=== PATIENT | male | born 1960 | race African-American/Black ===

== ENCOUNTER 2022-06-11 22:20 | Observation (INO) ==
[2022-06-11] MEDS ORDERED: SODIUM CHLORIDE 0.9% 1000ML 1,000 ML IV SCH (23:15)
--- NOTE | 2022-06-11 23:21 | Emergency Department Note ---
History of Present Illness General Chief complaint: Cardiac Assessment Time Seen by Provider: 06/11/22 22:40 Source: patient Mode of arrival: EMS Limitations: no limitations History of Present Illness Provider complaint: Fatigue, dizziness, chest pain Maximum Pain Intensity: 7 This is a 61-year-old male who presents emergency department complaining of 1 month of intermittent fatigue, dizziness, chest pain, shortness of breath. Patient states [facility]. He does not know the results. He denies any prior history of heart attack, congestive heart failure or dysrhythmia. Patient states he does not take any medication for blood pressure. He denies any other recent change in medications. Denies any recent illness or change in activity. Patient states today he felt worse and had accompanying nausea and vomiting. He states he had already felt fatigued and dizzy at that time. He states shortness of breath has been ongoing for longer than the last month. He is a former smoker. He states that shortness of breath is worse with activity. Home Medications Medication Instructions Recorded Confirmed Type albuterol sulfate 90 mcg/actuation 2 puff inhalation QID PRN 06/12/22 06/12/22 History aerosol inhaler Shortness Of Breath atorvastatin 20 mg tablet 20 mg PO HS 06/12/22 06/12/22 History ciclesonide 160 mcg/actuation 1 puff inhalation BID 06/12/22 06/12/22 History aerosol inhaler (Alvesco) meclizine 12.5 mg tablet 12.5 mg PO BID PRN #0 tabs 06/12/22 Rx omeprazole 20 mg tablet,delayed 20 mg PO DAILY 06/12/22 06/12/22 History release tamsulosin 0.4 mg capsule 0.4 mg PO HS #0 caps 06/12/22 Rx Allergies Allergy/AdvReac Type Severity Reaction Status Date / Time aspirin Allergy Unknown Unknown Verified 06/12/22 00:07 feathers Allergy Unknown Unknown Verified 06/12/22 00:07 wool Allergy Unknown Unknown Verified 06/12/22 00:07 Past Med/Surg History Medical History Hyperlipidemia Hypertension Family History Other Cerebral aneurysm Hypertension Social History Smoking Status: Never smoker Second Hand Exposure: No; Hx Alcohol Use: No Preferred Language: Syriac Communication Ability: Effective 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 Beliefs That Will Affect Care: None Current Living Situation: Other Current Living Situation Comment: [facility] Elder Feels Safe at Home: Yes and Declines to Answer Assistive Devices: None Review of Systems A total of 10 systems reviewed and were otherwise negative All systems reviewed & are unremarkable except as noted in HPI & below Physical Exam Vital Signs Vital Signs - 24 hr 06/11/22 22:38 06/11/22 22:38 06/11/22 23:27 Temperature 36.3 C L Temperature Source Oral Pulse Rate 38 L Pulse Rate [Right Finger] 41 L Respiratory Rate 14 16 Respiratory Effort / Characteristics Non-Labored Respiratory Depth Normal Blood Pressure 181/75 H Blood Pressure [Right Arm] 152/69 H Blood Pressure Mean 110 Blood Pressure Mean [Right Arm] 96 Pulse Oximetry 97 97 97 Oxygen Delivery Method Room Air Room Air Room Air Sepsis Recent Fever Within 48 Hours No Sepsis New/Unexplained Change in Mental Status N/A Sepsis Action Taken by Nursing No Action Required 06/12/22 00:43 Temperature Temperature Source Pulse Rate Pulse Rate [Right Finger] 46 L Respiratory Rate 16 Respiratory Effort / Characteristics Respiratory Depth Blood Pressure Blood Pressure [Right Arm] 135/62 Blood Pressure Mean Blood Pressure Mean [Right Arm] 86 Pulse Oximetry 97 Oxygen Delivery Method Room Air Sepsis Recent Fever Within 48 Hours Sepsis New/Unexplained Change in Mental Status Sepsis Action Taken by Nursing GENERAL: alert, ill appearing, well nourished, no distress, non-toxic EYE EXAM: normal conjunctiva, PERRL and EOM's grossly intact, no nystagmus OROPHARYNX: no exudate, no erythema, lips, buccal mucosa, and tongue normal and mucous membranes are moist NECK: supple, no nuchal rigidity, no adenopathy, non-tender LUNGS: Clear to auscultation. Normal chest wall mechanics, no w/r/r HEART: no murmurs, S1 normal and S2 normal, patient noted to be bradycardic on tele at 39 ABDOMEN: abdomen soft, non-tender, normo-active bowel sounds, no masses, no rebound or guarding. BACK: Back is symmetrical on inspection and there is no deformity, no midline tenderness, no CVA tenderness. SKIN: no rashes and no bruising UPPER EXTREMITIES: upper extremities are grossly normal. FROM, nml pulses b/l. LOWER EXTREMITIES: No pitting edema. FROM, nml pulses b/l. NEURO EXAM: Normal sensorium, cranial nerves II-XII grossly intact, normal speech, no gross weakness of arms, no gross weakness of legs. Gross sensation intact. Course Course 0055: After contacting the [facility] about results of his recent testing, and EKG only was faxed over, no echo. Administered Medications Discontinued Medications Fluticasone Furoate (Fluticasone Furoate 200mcg 14 Puffs/Inhaler) 1 puffs INH DAILY MATT Stop: 07/12/22 08:59 Last Admin: 06/12/22 10:34 Dose: 1 puffs Documented By: ESTER Sodium Chloride (Nss 1000ml) 1,000 mls @ 125 mls/hr IV .Q8H MATT Stop: 07/11/22 23:14 Last Infusion: 06/12/22 02:24 Dose: 0 mls/hr Documented By: Admin: 06/11/22 23:19 Dose: 125 mls/hr Documented By: SAEED Sodium Chloride (Nss 1000ml) 1,000 mls @ 80 mls/hr IV .[id number] MATT Stop: 06/12/22 14:46 Last Infusion: 06/12/22 15:40 Dose: 0 mls/hr Documented By: Admin: 06/12/22 03:16 Dose: 80 mls/hr Documented By: YVON Magnesium Oxide (Magnesium Oxide 400 Mg Tab) 400 mg PO QAM MATT Stop: 07/12/22 08:59 Last Admin: 06/12/22 10:34 Dose: 400 mg Documented By: ESTER Pantoprazole Sodium (Pantoprazole 40 Mg Tab) 40 mg PO DAILY MATT Stop: 07/12/22 08:59 Last Admin: 06/12/22 10:34 Dose: 40 mg Documented By: ESTER Medical Decision Making Differential Diagnosis Differential diagnoses includes but is not limited to acute coronary syndrome, myocardial infarction, pericarditis, pulmonary embolus, aortic dissection, pneumonia, pneumothorax, musculoskeletal, shingles, esophageal. Medical Records Attestation: I reviewed the patient's medical records. Home Medications Current Medication List: was personally reviewed by me Laboratory Data Attestation: I reviewed the patient's lab results. Result diagrams: 06/12/22 05:46 06/12/22 05:46 Lab Results 06/11/22 06/11/22 06/11/22 Range/Units 22:48 22:48 22:48 WBC 6.31 (4.8-10.8) K/ul RBC 3.99 L (4.63-6.08) M/uL Hgb 13.9 L (14.0-18.0) g/dl Hct 39.5 L (40.1-51.0) % MCV 99.0 (80.0-100.0) fL MCH 34.8 H (25.0-34.0) pg MCHC 35.2 (32.0-36.0) g/dL RDW Std Deviation 49.9 H (36.4-46.3) fL RDW Coeff of Rosalio 13.6 (11.5-14.5) % Plt Count 170 (130-400) K/uL MPV 13.2 H (9.4-12.4) fL Neutrophils % (Manual) 29 % Lymphocytes % (Manual) 51 % Reactive Lymphs % (Man) 12 % Monocytes % (Manual) 5 % Eosinophils % (Manual) 2 % Basophils % (Manual) 1 % Neutrophils # (Manual) 1.83 (1.4-6.5) K/uL Total Absolute Neuts 1.83 (1.4-6.5) K/uL Lymphocytes # (Manual) 3.22 (1.2-3.4) K/uL Reactive Lymphs # 0.76 K/uL Total Abs Lymphocytes 3.98 H (1.2-3.4) K/uL Monocytes # (Manual) 0.32 (0.24-0.82) K/uL Eosinophils # (Manual) 0.13 (0-0.50) K/uL Basophils # (Manual) 0.06 (0-0.2) K/uL PT 11.4 (9.0-12.0) Seconds INR 1.1 (0.9-1.1) Sodium 137 (136-145) mmol/L Potassium 3.6 (3.5-5.1) mmol/L Chloride 106 (98-107) mmol/L Carbon Dioxide 24 (21-32) mmol/L Anion Gap 7 (3-11) BUN 14 (6-23) mg/dl Creatinine 1.16 (0.6-1.4) mg/dl Est Cr Clr Drug Dosing Not Reportable Est GFR ( Amer) 78.3 ml/min Est GFR (Non-Af Amer) 67.6 ml/min BUN/Creatinine Ratio 12.1 (10-20) Glucose 115 H (70-99(Fasting)) mg/dl Calcium 9.0 (8.5-10.1) mg/dl Magnesium 1.8 (1.7-2.4) mg/dl Total Bilirubin 0.5 (0.2-1.0) mg/dl AST 21 (13-39) U/L ALT 20 (7-52) U/L Alkaline Phosphatase 94 (34-104) U/L Troponin I High Sens 4.6 (0-20) pg/ml Total Protein 6.9 (6.0-8.3) gm/dl Albumin 4.5 (3.4-5.0) gm/dl Globulin 2.4 L (2.5-4.0) gm/dl Albumin/Globulin Ratio 1.9 (0.9-2) TSH (0.300-4.500) uIu/ml Lyme Disease IgG Ab (Negative) Lyme Disease IgM Ab (Negative) SARS-CoV-2, RNA, NAAT (NEGATIVE) 06/11/22 06/11/22 06/12/22 Range/Units 22:48 22:48 00:02 WBC (4.8-10.8) K/ul RBC (4.63-6.08) M/uL Hgb (14.0-18.0) g/dl Hct (40.1-51.0) % MCV (80.0-100.0) fL MCH (25.0-34.0) pg MCHC (32.0-36.0) g/dL RDW Std Deviation (36.4-46.3) fL RDW Coeff of Rosalio (11.5-14.5) % Plt Count (130-400) K/uL MPV (9.4-12.4) fL Neutrophils % (Manual) % Lymphocytes % (Manual) % Reactive Lymphs % (Man) % Monocytes % (Manual) % Eosinophils % (Manual) % Basophils % (Manual) % Neutrophils # (Manual) (1.4-6.5) K/uL Total Absolute Neuts (1.4-6.5) K/uL Lymphocytes # (Manual) (1.2-3.4) K/uL Reactive Lymphs # K/uL Total Abs Lymphocytes (1.2-3.4) K/uL Monocytes # (Manual) (0.24-0.82) K/uL Eosinophils # (Manual) (0-0.50) K/uL Basophils # (Manual) (0-0.2) K/uL PT (9.0-12.0) Seconds INR (0.9-1.1) Sodium (136-145) mmol/L Potassium (3.5-5.1) mmol/L Chloride (98-107) mmol/L Carbon Dioxide (21-32) mmol/L Anion Gap (3-11) BUN (6-23) mg/dl Creatinine (0.6-1.4) mg/dl Est Cr Clr Drug Dosing Est GFR ( Amer) ml/min Est GFR (Non-Af Amer) ml/min BUN/Creatinine Ratio (10-20) Glucose (70-99(Fasting)) mg/dl Calcium (8.5-10.1) mg/dl Magnesium (1.7-2.4) mg/dl Total Bilirubin (0.2-1.0) mg/dl AST (13-39) U/L ALT (7-52) U/L Alkaline Phosphatase (34-104) U/L Troponin I High Sens (0-20) pg/ml Total Protein (6.0-8.3) gm/dl Albumin (3.4-5.0) gm/dl Globulin (2.5-4.0) gm/dl Albumin/Globulin Ratio (0.9-2) TSH 0.838 (0.300-4.500) uIu/ml Lyme Disease IgG Ab Negative (Negative) Lyme Disease IgM Ab Negative (Negative) SARS-CoV-2, RNA, NAAT NEGATIVE (NEGATIVE) Imaging Data Radiologist's Impression: XR chest 1V portable HISTORY: 61 years-old Male chest pain . Acute chest pain COMPARISON: Chest radiograph 01/31/2020 TECHNIQUE: Portable AP view of the chest FINDINGS: The cardiomediastinal and hilar silhouettes are unchanged. No pneumothorax, pleural effusion, airspace consolidation or overt pulmonary edema. Bones of the chest appear grossly intact. IMPRESSION: No acute process. ACT 112: Negative or not required by law. The above report was generated using voice recognition software. It may contain grammatical, syntax or spelling errors. Electronically signed by: Mac Alvarez M.D. 06/12/2022 9:13 AM ECG Data Attestation: I personally reviewed and interpreted this ECG as follows: Indication: + chest pain Rate (beats per minute): 42 Rhythm: + sinus bradycardia ECG Intervals/blocks: + Normal QRS and + Normal QT ECG [place]: + Normal ECG ST segments: + Nonspecific ST abnormalities MDM Narrative An order was placed for continuous cardiac monitoring. The monitor shows a rate of _38__ with _sinus bradycardia__ rhythm. This is a 61-year-old male presents emergency department complaining of intermittent chest pain, dizziness, fatigue, and nausea. Patient noted to be significantly bradycardic in the upper 30s initially by nurses and so he was placed in a room and connected to telemetry. Patient's EKG otherwise reass uring, no evidence of heart block. Patient denies any recent trauma or illness. Denies any use of medication for blood pressure which could have also concurrently caused a lower heart rate. Patient is not anticoagulated. Chest x-ray reassuring. Labs been drawn and sent were otherwise reassuring also, additional labs added for Lyme and COVID. Patient with persistent significant bradycardia while monitored in the emergency room. He was rechecked multiple times. Patient had improvement of dizziness and nausea with medication and fluids, however remained bradycardic. Due to concern for possible bradycardia being the origin of all of his symptoms and patient with multiple risk factors for coronary artery disease, case discussed with the hospitalist for additional evaluation and management. Impression & Plan Chest pain, Symptomatic bradycardia, Dizziness, Fatigue Discharge Plan Visit Data Chief Complaint: Cardiac Assessment ED Provider: Hannah Mcintyre Discharge Problem: Chest pain, Symptomatic bradycardia, Dizziness, Fatigue Patient Disposition: Admitted As Inpatient Discharge Instructions Interventions: ED Discharge Assessment Last Done: 06/12/22 02:01
[2022-06-11 23:37] LABS: Hematocrit (blood only) 39.5 % (40.1-51.0); Hemoglobin 13.9 g/dl (14.0-18.0); Mean Corpuscular Hemoglobin 34.8 pg (25.0-34.0); Mean Corpuscular Hgb Conc 35.2 g/dL (32.0-36.0); RDW Coefficient of Variation 13.6 % (11.5-14.5); RDW Standard Deviation 49.9 fL (36.4-46.3); Red Blood Count 3.99 M/uL (4.63-6.08); White Blood Count 6.31 K/ul (4.8-10.8)
[2022-06-11 23:50] LABS: INR 1.1 (0.9-1.1); Prothrombin Time 11.4 Seconds (9.0-12.0)
[2022-06-12 00:02] LABS: Mean Platelet Volume 13.2 fL (9.4-12.4); Platelet Count 170 K/uL (130-400); Troponin I High Sensitivity 4.6 pg/ml (0-20)
[2022-06-12 00:04] LABS: ALC (manual) 3.98 K/uL (1.2-3.4); ANC (manual) 1.83 K/uL (1.4-6.5); Basophils # (manual) 0.06 K/uL (0-0.2); Basophils % (manual) 1 %; Eosinophils # (manual) 0.13 K/uL (0-0.50); Eosinophils % (manual) 2 %; Lymphocytes # (manual) 3.22 K/uL (1.2-3.4); Lymphocytes % (manual) 51 %; Monocytes # (manual) 0.32 K/uL (0.24-0.82); Monocytes % (manual) 5 %; Neutrophils # (manual) 1.83 K/uL (1.4-6.5); Neutrophils % (manual) 29 %; Reactive Lymphocytes # (manual) 0.76 K/uL; Reactive Lymphocytes % (manual) 12 %
[2022-06-12 00:05] LABS: Alanine Aminotransferase 20 U/L (7-52); Albumin Globulin Ratio 1.9 (0.9-2); Albumin Level 4.5 gm/dl (3.4-5.0); Alkaline Phosphatase 94 U/L (34-104); Anion Gap 7 (3-11); Aspartate Aminotransferase 21 U/L (13-39); BUN Creatinine Ratio 12.1 (10-20); Bilirubin,Total 0.5 mg/dl (0.2-1.0); Blood Urea Nitrogen 14 mg/dl (6-23); Carbon Dioxide 24 mmol/L (21-32); Chloride 106 mmol/L (98-107); Est GFR (African American) 78.3 ml/min; Est GFR (Non-African American) 67.6 ml/min; Globulin 2.4 gm/dl (2.5-4.0); Glucose 115 mg/dl (70-99(Fasting)); Magnesium 1.8 mg/dl (1.7-2.4); Potassium 3.6 mmol/L (3.5-5.1); Sodium 137 mmol/L (136-145); Total Protein 6.9 gm/dl (6.0-8.3)
[2022-06-12 00:14] LABS: Lyme Ab IgG w/WB Rflx Negative (Negative); Lyme Ab IgM w/WB Rflx Negative (Negative)
[2022-06-12] MEDS ORDERED: SODIUM CHLORIDE 0.9% 1000ML 1,000 ML IV SCH (02:17)
[2022-06-12] MEDS ORDERED: ACETAMINOPHEN 325 MG TAB PO PRN (02:17)
[2022-06-12] MEDS ORDERED: NITROGLYCERIN SL 0.4 MG/TAB TAB SL PRN (02:17)
[2022-06-12] MEDS ORDERED: ONDANSETRON INJ 2 MG/ML 2 ML VIAL IV PRN (02:17)
[2022-06-12] MEDS ORDERED: ALBUTEROL HFA 8 GM INHALER INH PRN (02:17)
[2022-06-12] MEDS ORDERED: POLYETHYLENE (MIRALAX) 17 GM PACK PO PRN (02:17)
--- NOTE | 2022-06-12 02:37 | History and Physical Report ---
DATE OF SERVICE: 06/12/2022. CHIEF COMPLAINT: Chest pain and dizziness. HISTORY OF PRESENT ILLNESS: This is a 61-year-old male with past medical history significant for asthma, hyperlipidemia, GERD and BPH, who presents with ongoing on and off chest pain for the last 2 months and also feeling dizzy on and off for the last 2 months and blurred visions. Today, it was a little worse and he also had nausea and vomiting episodes today, that is the reason he came here. No aggravating or alleviating factors. It comes on its own and goes on its own. It is in the lower chest, mainly reported sharp pain, 5/10 in severity, no radiation. The patient also gets frequent headaches. No earache, no runny nose, no sore throat, no cough, no difficulty swallowing food and for solids and liquids, but sometimes has difficulty swallowing saliva. He is getting short of breath on exertion. No abdominal pain. Normal bowel and bladder movements. Not able to ambulate much because of dizziness lately. In the ER, his heart rate was in the 30s and 40s, blood pressure is okay. ALLERGIES: ASPIRIN, FEATHERS, MOLD. PAST MEDICAL HISTORY: As mentioned above. 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 MEDICATIONS: The patient is on albuterol 2 puffs inhalation q.i.d. p.r.n., atorvastatin 20 mg p.o. at bedtime, Alvesco 1 puff inhalation b.i.d., omeprazole 20 mg p.o. daily, terazosin 10 mg p.o. at bedtime. FAMILY HISTORY: Significant for father has heart disease, mother from cancer and COVID. SOCIAL HISTORY: He states he has remote history of smoking a long time back. He used to drink a long time back. Currently living in half-way. REVIEW OF SYSTEMS: As per HPI. Rest of review of systems is negative. PHYSICAL EXAMINATION: GENERAL: The patient is of moderate build, not in acute distress. VITAL SIGNS: Temperature 36.3, pulse 46, respiratory rate 16, blood pressure 135/62, oxygen 97% on room air. HEENT: Pupils equal, round and reactive to light. Oral mucosa moist. NECK: No JVD or neck masses. CARDIOVASCULAR: S1 and S2 heard. Bradycardia. No murmurs. RESPIRATORY SYSTEM: Normal AP diameter. No accessory muscle use. No wheezing, no crackles. ABDOMEN: Soft, bowel sounds present, nontender, no distention. CENTRAL NERVOUS SYSTEM: Cranial nerves II through XII grossly intact, nonfocal. EXTREMITIES: No edema, no erythema. LABORATORY DATA: WBC 6.3, hemoglobin 13.9, hematocrit 39.5, platelets 170. PT is 11.4, INR 1.1. Sodium 137, potassium 3.6, chloride 106, bicarbonate 24, BUN 14, creatinine 1.1, serum glucose 115, calcium 9, magnesium 1.8, total bilirubin 0.5, AST 21, ALT 20, alkaline phosphatase 94. Troponin I high sensitivity 4.6. TSH 0.8. Lyme screen negative. SARS-CoV-2 rapid test negative. IMAGING DATA: Chest x-ray, no acute findings. EKG: Marked sinus bradycardia at a rate of 42, no acute ST changes seen. ASSESSMENT AND PLAN: This is a 61-year-old male who presents with on and off chest pain and on and off dizziness and blurred vision. 1. Chest pain: Troponin negative. We will follow serial enzymes.Will follow echo. Stress test as per cardiology. We will keep him n.p.o.Monitor in tele. 2. Dizziness, bradycardia: Tele monitoring We will await cardiac input. Lyme screen negative. 3. History of asthma: Continue his home inhalers. 4. History of hyperlipidemia: Continue statin. 5. History of gastroesophageal reflux disease: Continue omeprazole. 6. History of benign prostatic hyperplasia: Continue terazosin. 7. Deep venous thrombosis prophylaxis: Sequential compression devices for now. DISPOSITION: Admit to tele floor. Level 1 full code. Expect to discharge back to half-way when stable. Job ID: [id number] [facility]
[2022-06-12 06:09] LABS: Hematocrit (blood only) 39.3 % (40.1-51.0); Hemoglobin 13.9 g/dl (14.0-18.0); Mean Corpuscular Hemoglobin 34.4 pg (25.0-34.0); Mean Corpuscular Hgb Conc 35.4 g/dL (32.0-36.0); Mean Corpuscular Volume 97.3 fL (80.0-100.0); RDW Coefficient of Variation 13.6 % (11.5-14.5); RDW Standard Deviation 48.6 fL (36.4-46.3); Red Blood Count 4.04 M/uL (4.63-6.08); White Blood Count 7.83 K/ul (4.8-10.8)
[2022-06-12 06:12] LABS: Basophils # (auto) 0.04 K/uL (0-0.2); Basophils % (auto) 0.5 %; Eosinophils # (auto) 0.11 K/uL (0-0.50); Eosinophils % (auto) 1.4 %; Immature Granulocytes # (auto) 0.01 K/uL (0.00-0.02); Immature Granulocytes % (auto) 0.1 %; Lymphocytes # (auto) 3.36 K/uL (1.2-3.4); Lymphocytes % (auto) 42.9 %; Mean Platelet Volume 13.1 fL (9.4-12.4); Monocytes # (auto) 0.58 K/uL (0.24-0.82); Monocytes % (auto) 7.4 %; Neutrophils # (auto) 3.73 K/uL (1.4-6.5); Neutrophils % (auto) 47.7 %; Platelet Count 171 K/uL (130-400)
[2022-06-12 06:40] LABS: Troponin I High Sensitivity 3.7 pg/ml (0-20)
[2022-06-12 06:49] LABS: BUN Creatinine Ratio 11.1 (10-20); Calcium 8.7 mg/dl (8.5-10.1); Creatinine Clr Calc Pharmacy 71.5 ml/min; Est GFR (African American) 77.5 ml/min; Est GFR (Non-African American) 66.9 ml/min; Magnesium 1.7 mg/dl (1.7-2.4); Potassium 4.9 mmol/L (3.5-5.1)
--- NOTE | 2022-06-12 08:34 | Cardiology Consultation ---
Date of Consultation June 12, 2022 Assessment & Plan (1) Chest pain: (2) Dizziness: (3) Fatigue: (4) Hyperlipidemia: (5) Hypertension: (6) Sinus bradycardia: Plan Initial ischemic work-up unremarkable Exercise stress echo was nonischemic with appropriate chronotropic competence. Upon further questioning, dizziness appears to be likely secondary to vertigo. Will ask our physical therapy colleagues to evaluate and treat Okay to discharge once seen by physical therapy from a cardiac standpoint History of Present Illness Reason for Consultation: chest pain/bradycardia Requesting Physician: BOGDAN Attending Physician: Ney Toney MD History of Present Illness The patient is a 61 yo male currently incarcerated at [facility] who presents with chest discomfort and dizziness. He states that his symptoms started approximately 2 months ago. He states he has been having chest discomfort and dizzy spells off and on for the last 2 months. He notes the chest discomfort does not seem to have any pattern to it and can happen either at rest or with exertion. He describes it as a dull achy substernal pressure sensation without associated symptoms. His dizziness is positional in nature and occurs with head movements. When he does get dizzy he also gets very nauseous with occasional vomiting. No previous cardiac history. No previous similar episodes in the past. Allergies Allergy/AdvReac Type Severity Reaction Status Date / Time aspirin Allergy Unknown Unknown Verified 06/12/22 00:07 feathers Allergy Unknown Unknown Verified 06/12/22 00:07 wool Allergy Unknown Unknown Verified 06/12/22 00:07 Home Medications Medication Instructions Recorded Confirmed Type albuterol sulfate 90 mcg/actuation 2 puff inhalation QID PRN 06/12/22 06/12/22 History aerosol inhaler Shortness Of Breath atorvastatin 20 mg tablet 20 mg PO HS 06/12/22 06/12/22 History ciclesonide 160 mcg/actuation 1 puff inhalation BID 06/12/22 06/12/22 History aerosol inhaler (Alvesco) omeprazole 20 mg tablet,delayed 20 mg PO DAILY 06/12/22 06/12/22 History release terazosin 10 mg capsule 10 mg PO HS 06/12/22 06/12/22 History Patient History Medical History Hyperlipidemia Hypertension Family History Other Cerebral aneurysm Hypertension Social History Smoking Status: Never smoker Second Hand Exposure: No; Do You Dip or Chew Tobacco: No; Tobacco Cessation Education Requested by Patient: No Hx Alcohol Use: No Preferred Language: Armenian Communication Ability: Effective Supervisor Costuming Required: No Beliefs That Will Affect Care: None Current Living Situation: Other Current Living Situation Comment: [facility] Other Information That Helps Us Care for You: No Feels Safe at Home: Yes and Declines to Answer Safety Concerns: Feels Safe At This Time Assistive Devices: None Review of Systems Review of Systems: All systems reviewed & are unremarkable except as noted in HPI & below Physical Exam Physical Exam: General: Awake, alert and oriented x 3. No acute distress. HEENT: Normocephalic, atraumatic. Pupils equal, round and reactive to light and accommodation. Extraocular muscles are intact. Anicteric sclera. Moist mucous membranes. Neck: No JVD. No bruit. Cardiovascular: Regular. Positive S-4. Normal S-1 and S-2. No S-3. No murmurs or rubs. Pulmonary: Clear to auscultation B/L. No rales, rhonchi or wheezing Abdomen: Bowel sounds x 4, soft. No rebound, guarding or tenderness. No organomegaly. Extremities: No clubbing, cyanosis or edema. +2 pedal pulses bilaterally. Skin: Warm and dry. Results & Data ([facility]) Vital Signs (Past 12 Hours) Vital Signs Temp Pulse Pulse Resp BP BP Pulse Ox 06/12/22 07:23 50 L 06/12/22 07:21 36.7 C 45 L 20 143/71 H 99 06/12/22 03:37 58 L 06/12/22 02:54 36.6 C 57 L 18 169/77 H 97 06/12/22 01:29 46 L 16 120/72 94 06/12/22 00:43 46 L 16 135/62 97 06/11/22 23:27 41 L 16 152/69 H 97 06/11/22 22:38 97 06/11/22 22:38 36.3 C L 38 L 14 181/75 H 97 O2 Del Method 06/12/22 07:23 10/05/22 07:21 Room Air 06/12/22 03:37 06/12/22 02:54 Room Air 06/12/22 01:29 06/12/22 00:43 Room Air 06/11/22 23:27 Room Air 06/11/22 22:38 Room Air 06/11/22 22:38 Room Air
--- NOTE | 2022-06-12 08:44 | Electrocardiogram Report ---
Test Reason : Blood Pressure : / mmHG Vent. Rate : 042 BPM Atrial Rate : 042 BPM P-R Int : 196 ms QRS Dur : 094 ms QT Int : 464 ms P-R-T Axes : 018 033 048 degrees QTc Int : 387 ms Marked sinus bradycardia Abnormal ECG When compared with ECG of 31-JAN-2020 02:06, Vent. rate has decreased BY 21 BPM QT has shortened Confirmed by Gaurav Zaman ([id number]) on 06/12/2022 8:43:48 AM Referred By: REFERRED SELF Confirmed By:Nir Zaman
--- NOTE | 2022-06-12 08:45 | Electrocardiogram Report ---
Test Reason : Blood Pressure : / mmHG Vent. Rate : 049 BPM Atrial Rate : 049 BPM P-R Int : 188 ms QRS Dur : 090 ms QT Int : 448 ms P-R-T Axes : 054 043 060 degrees QTc Int : 404 ms Sinus bradycardia Otherwise normal ECG When compared with ECG of 11-JUN-2022 22:27, (unconfirmed) No significant change was found Confirmed by Gaurav Zaman ([id number]) on 06/12/2022 8:45:25 AM Referred By: REFERRED SELF Confirmed By:Nir Zaman
[2022-06-12] MEDS ORDERED: FLUTICASONE FUROATE 200MCG 14 PUFFS/INHALER INH SCH (09:00)
[2022-06-12] MEDS ORDERED: PANTOprazole 40 MG TAB PO SCH (09:00)
[2022-06-12] MEDS ORDERED: MAGNESIUM OXIDE 400 MG TAB PO SCH (09:00)
--- NOTE | 2022-06-12 09:15 | XRay Report ---
XR chest 1V portable HISTORY: 61 years-old Male chest pain . Acute chest pain COMPARISON: Chest radiograph 01/31/2020 TECHNIQUE: Portable AP view of the chest FINDINGS: The cardiomediastinal and hilar silhouettes are unchanged. No pneumothorax, pleural effusion, airspac e consolidation or overt pulmonary edema. Bones of the chest appear grossly intact. IMPRESSION: No acute process. ACT 112: Negative or not required by law. The above report was generated using voice recognition software. It may contain grammatical, syntax o r spelling errors. Electronically signed by: Mac Alvarez M.D. 06/12/2022 9:13 AM
--- NOTE | 2022-06-12 11:44 | CT Scan Report ---
CT head/brain wo con CLINICAL HISTORY: 61 years-old Male with DIZZINESS. Acute dizziness TECHNIQUE: Multiple axial CT images of the head were obtained without contrast. A dose lowering tech nique was utilized adhering to the principles of ALARA. CT DOSE: 537.48 mGy.cm COMPARISON: Head CT 01/31/2020 FINDINGS: No acute intracranial hemorrhage, midline shift, intracranial mass, hydrocephalus, territorial ischem ia or abnormal extra-axial collection. Mild involutional changes. The calvarium is intact. Mild to moderate mucosal thickening of the paranasal sinuses. The mastoid a ir cells are clear. Small contusion of the right occipital scalp. IMPRESSION: 1. No acute intracranial abnormality. 2. Small contusion of the right occipital scalp. ACT 112: Negative or not required by law. The above report was generated using voice recognition software. It may contain grammatical, syntax o r spelling errors. Electronically signed by: Mac Alvarez M.D. 06/12/2022 11:42 AM
[2022-06-12] MEDS ORDERED: MECLIZINE 12.5 MG TAB PO PRN (15:22)
--- NOTE | 2022-06-12 15:33 | Hospitalist Progress Note ---
Date of Service June 12, 2022 Assessment & Plan (1) Chest pain: Plan: Patient is a 61 yr male who presents with on and off chest pain and on and off dizziness and blurred vision. Chest Pain Less likely ACS Sinus Bradycardia Troponin:Negative --EKG shows: No signs of acute ischemia --CXR: No acute process. --Stress ECHO: Nonischemic exercise stress echo. No arrhythmias. Normal heart rate and blood pressure response to exercise. Below average exercise tolerance for age. Chest pain was not reproduced at peak heart rate. At rest, normal LV chamber size and mild concentric LVH. Normal LV systolic function, EF 60 to 65% . No segmental left ventricular wall motion abnormalities. Grade 1 diastolic dysfunction. No significant valvular pathology. -- Lyme screen negative. --Appreciate Cardiology Input Continue home medications Dizziness Likely Vertigo Terazosin changed to tamsulosin Antivert as needed PT evaluated Asthma: Continue home inhalers No signs of exacerbation Hyperlipidemia: Continue statin. GERD Continue PPI H/O BPH Terazosin>>changed to Tamsulosin DVT Px: SCDs Code Status Full Code Admission and Anticipated Discharge Date Admission Date: June 12, 2022 Subjective Patient is seen and examined at bedside Had stress test earlier today Currently denies any chest pain, dyspnea, dizziness, nausea, abdominal pain States feeling tired No other complaints Review of Systems Review of Systems: All systems reviewed & are unremarkable except as noted in Subjective Physical Exam Physical Exam: Physical Exam: Vitals signs as noted above General Appearance:Moderately built and nourished, no apparent distress Head: normocephalic, Atraumatic Eyes: normal inspection, EOMI Neck: supple, Trachea midline Respiratory/Chest: Normal breath sounds, CTA, No accessory muscle use Cardiovascular: S1, S2, No murmur, Bradycardia Abdomen/GI:Soft, Non tender, Bowel sounds present Extremities/Musculoskeletal:normal inspection, no edema Neurologic/Psych:AAOX3, grossly no focal neurological deficits Skin: normal color, warm Results & Data Results & Data ([facility]) Vital Signs (Past 12 Hours) Vital Signs Temp Pulse Pulse Resp BP Pulse Ox O2 Del Method 06/12/22 10:49 36.6 C 51 L 20 146/68 H 97 Room Air 06/12/22 09:41 Room Air 06/12/22 07:23 50 L 06/12/22 07:21 36.7 C 45 L 20 143/71 H 99 Room Air 06/12/22 03:37 58 L Laboratory Results Short CBC 06/11/22 06/12/22 Range/Units 22:48 05:46 WBC 6.31 7.83 (4.8-10.8) K/ul Hgb 13.9 L 13.9 L (14.0-18.0) g/dl Hct 39.5 L 39.3 L (40.1-51.0) % Plt Count 170 171 (130-400) K/uL BMP 06/11/22 06/12/22 22:48 05:46 Sodium 137 139 Potassium 3.6 4.9 D Chloride 106 109 H Carbon Dioxide 24 27 BUN 14 13 Creatinine 1.16 1.17 Glucose 115 H 103 H Calcium 9.0 8.7 Liver Function 06/11/22 Range/Units 22:48 Total Bilirubin 0.5 (0.2-1.0) mg/dl AST 21 (13-39) U/L ALT 20 (7-52) U/L Alkaline Phosphatase 94 (34-104) U/L Albumin 4.5 (3.4-5.0) gm/dl
--- NOTE | 2022-06-12 15:39 | Discharge Summary ---
Date of Service June 12, 2022 Admission HPI Per Admitting Provider CHIEF COMPLAINT: Chest pain and dizziness. HISTORY OF PRESENT ILLNESS: This is a 61-year-old male with past medical history significant for asthma, hyperlipidemia, GERD and BPH, who presents with ongoing on and off chest pain for the last 2 months and also feeling dizzy on and off for the last 2 months and blurred visions. Today, it was a little worse and he also had nausea and vomiting episodes today, that is the reason he came here. No aggravating or alleviating factors. It comes on its own and goes on its own. It is in the lower chest, mainly reported sharp pain, 5/10 in severity, no radiation. The patient also gets frequent headaches. No earache, no runny nose, no sore throat, no cough, no difficulty swallowing food and for solids and liquids, but sometimes has difficulty swallowing saliva. He is getting short of breath on exertion. No abdominal pain. Normal bowel and bladder movements. Not able to ambulate much because of dizziness lately. In the ER, his heart rate was in the 30s and 40s, blood pressure is okay. Admission Exam Per Admitting Provider PHYSICAL EXAMINATION: GENERAL: The patient is of moderate build, not in acute distress. VITAL SIGNS: Temperature 36.3, pulse 46, respiratory rate 16, blood pressure 135/62, oxygen 97% on room air. HEENT: Pupils equal, round and reactive to light. Oral mucosa moist. NECK: No JVD or neck masses. CARDIOVASCULAR: S1 and S2 heard. Bradycardia. No murmurs. RESPIRATORY SYSTEM: Normal AP diameter. No accessory muscle use. No wheezing, no crackles. ABDOMEN: Soft, bowel sounds present, nontender, no distention. CENTRAL NERVOUS SYSTEM: Cranial nerves II through XII grossly intact, nonfocal. EXTREMITIES: No edema, no erythema. Principal Diagnosis Chest Pain Sinus Bradycardia Vertigo Discharge Data Allergies Allergy/AdvReac Type Severity Reaction Status Date / Time aspirin Allergy Unknown Unknown Verified 06/12/22 00:07 feathers Allergy Unknown Unknown Verified 06/12/22 00:07 wool Allergy Unknown Unknown Verified 06/12/22 00:07 Consultations 06/12/22 00:27 ED Decision to Admit Stat 06/12/22 08:00 Consult Cardiology Routine Procedures Performed Laboratory Results WBC 7.83 K/ul (4.8-10.8) 06/12/22 05:46 RBC 4.04 M/uL (4.63-6.08) L 06/12/22 05:46 Hgb 13.9 g/dl (14.0-18.0) L 06/12/22 05:46 Hct 39.3 % (40.1-51.0) L 06/12/22 05:46 MCV 97.3 fL (80.0-100.0) 06/12/22 05:46 MCH 34.4 pg (25.0-34.0) H 06/12/22 05:46 MCHC 35.4 g/dL (32.0-36.0) 06/12/22 05:46 RDW Std Deviation 48.6 fL (36.4-46.3) H 06/12/22 05:46 RDW Coeff of Rosalio 13.6 % (11.5-14.5) 06/12/22 05:46 Plt Count 171 K/uL (130-400) 06/12/22 05:46 MPV 13.1 fL (9.4-12.4) H 06/12/22 05:46 Immature Gran % (Auto) 0.1 % 06/12/22 05:46 Neut % (Auto) 47.7 % 06/12/22 05:46 Lymph % (Auto) 42.9 % 06/12/22 05:46 Wayne % (Auto) 7.4 % 06/12/22 05:46 Eos % (Auto) 1.4 % 06/12/22 05:46 Baso % (Auto) 0.5 % 06/12/22 05:46 Neut # (Auto) 3.73 K/uL (1.4-6.5) 06/12/22 05:46 Lymph # (Auto) 3.36 K/uL (1.2-3.4) 06/12/22 05:46 Wayne # (Auto) 0.58 K/uL (0.24-0.82) 06/12/22 05:46 Eos # (Auto) 0.11 K/uL (0-0.50) 06/12/22 05:46 Baso # (Auto) 0.04 K/uL (0-0.2) 06/12/22 05:46 Immature Gran # (Auto) 0.01 K/uL (0.00-0.02) 06/12/22 05:46 Neutrophils % (Manual) 29 % 06/11/22 22:48 Lymphocytes % (Manual) 51 % 06/11/22 22:48 Reactive Lymphs % (Man) 12 % 06/11/22 22:48 Monocytes % (Manual) 5 % 06/11/22 22:48 Eosinophils % (Manual) 2 % 06/11/22 22:48 Basophils % (Manual) 1 % 06/11/22 22:48 Neutrophils # (Manual) 1.83 K/uL (1.4-6.5) 06/11/22 22:48 Total Absolute Neuts 1.83 K/uL (1.4-6.5) 06/11/22 22:48 Lymphocytes # (Manual) 3.22 K/uL (1.2-3.4) 06/11/22 22:48 Reactive Lymphs # 0.76 K/uL 06/11/22 22:48 Total Abs Lymphocytes 3.98 K/uL (1.2-3.4) H 06/11/22 22:48 Monocytes # (Manual) 0.32 K/uL (0.24-0.82) 06/11/22 22:48 Eosinophils # (Manual) 0.13 K/uL (0-0.50) 06/11/22 22:48 Basophils # (Manual) 0.06 K/uL (0-0.2) 06/11/22 22:48 PT 11.4 Seconds (9.0-12.0) 06/11/22 22:48 INR 1.1 (0.9-1.1) 06/11/22 22:48 Sodium 139 mmol/L (136-145) 06/12/22 05:46 Potassium 4.9 mmol/L (3.5-5.1) D 06/12/22 05:46 Chloride 109 mmol/L (98-107) H 06/12/22 05:46 Carbon Dioxide 27 mmol/L (21-32) 06/12/22 05:46 Anion Gap 3 (3-11) 06/12/22 05:46 BUN 13 mg/dl (6-23) 06/12/22 05:46 Creatinine 1.17 mg/dl (0.6-1.4) 06/12/22 05:46 Est Cr Clr Drug Dosing 71.5 ml/min 06/12/22 05:46 Est GFR ( Amer) 77.5 ml/min 06/12/22 05:46 Est GFR (Non-Af Amer) 66.9 ml/min 06/12/22 05:46 BUN/Creatinine Ratio 11.1 (10-20) 06/12/22 05:46 Glucose 103 mg/dl (70-99(Fasting)) H 06/12/22 05:46 Calcium 8.7 mg/dl (8.5-10.1) 06/12/22 05:46 Magnesium 1.7 mg/dl (1.7-2.4) 06/12/22 05:46 Total Bilirubin 0.5 mg/dl (0.2-1.0) 06/11/22 22:48 AST 21 U/L (13-39) 06/11/22 22:48 ALT 20 U/L (7-52) 06/11/22 22:48 Alkaline Phosphatase 94 U/L (34-104) 06/11/22 22:48 Troponin I High Sens 4.6 pg/ml (0-20) 06/12/22 10:45 Total Protein 6.9 gm/dl (6.0-8.3) 06/11/22 22:48 Albumin 4.5 gm/dl (3.4-5.0) 06/11/22 22:48 Globulin 2.4 gm/dl (2.5-4.0) L 06/11/22 22:48 Albumin/Globulin Ratio 1.9 (0.9-2) 06/11/22 22:48 TSH 0.838 uIu/ml (0.300-4.500) 06/11/22 22:48 Nasal Screen MRSA (PCR) Negative (Negative) 06/12/22 Unknown Lyme Disease IgG Ab Negative (Negative) 06/11/22 22:48 Lyme Disease IgM Ab Negative (Negative) 06/11/22 22:48 SARS-CoV-2, RNA, NAAT NEGATIVE (NEGATIVE) 06/12/22 00:02 Impressions Chest X-Ray 06/11/22 23:04 XR chest 1V portable HISTORY: 61 years-old Male chest pain . Acute chest pain COMPARISON: Chest radiograph 01/31/2020 TECHNIQUE: Portable AP view of the chest FINDINGS: The cardiomediastinal and hilar silhouettes are unchanged. No pneumothorax, pleural effusion, airspace consolidation or overt pulmonary edema. Bones of the chest appear grossly intact. IMPRESSION: No acute process. ACT 112: Negative or not required by law. The above report was generated using voice recognition software. It may contain grammatical, syntax or spelling errors. Electronically signed by: Mac Alvarez M.D. 06/12/2022 9:[address] 06/12/22 10:38 CT head/brain wo con CLINICAL HISTORY: 61 years-old Male with DIZZINESS. Acute dizziness TECHNIQUE: Multiple axial CT images of the head were obtained without contrast. A dose lowering technique was utilized adhering to the principles of ALARA. CT DOSE: 537.48 mGy.cm COMPARISON: Head CT 01/31/2020 FINDINGS: No acute intracranial hemorrhage, midline shift, intracranial mass, hydrocephalus, territorial ischemia or abnormal extra-axial collection. Mild involutional changes. The calvarium is intact. Mild to moderate mucosal thickening of the paranasal sinuses. The mastoid air cells are clear. Small contusion of the right occipital scalp. IMPRESSION: 1. No acute intracranial abnormality. 2. Small contusion of the right occipital scalp. ACT 112: Negative or not required by law. The above report was generated using voice recognition software. It may contain grammatical, syntax or spelling errors. Electronically signed by: Mac Alvarez M.D. 06/12/2022 11:42 AM Ordered Studies 06/12/22 10:38 CT head/brain wo con Urgent Hospital Course (1) Chest pain: Patient is a 61 yr male who presents with on and off chest pain and on and off dizziness and blurred vision. Chest Pain Less likely ACS Sinus Bradycardia Troponin:Negative --EKG shows: No signs of acute ischemia --CXR: No acute process. --Stress ECHO: Nonischemic exercise stress echo. No arrhythmias. Normal heart rate and blood pressure response to exercise. Below average exercise tolerance for age. Chest pain was not reproduced at peak heart rate. At rest, normal LV chamber size and mild concentric LVH. Normal LV systolic function, EF 60 to 65%. No segmental left ventricular wall motion abnormalities. Grade 1 diastolic dysfunction. No significant valvular pathology. -- Lyme screen negative. --Appreciate Cardiology Input Continue home medications Dizziness Likely Vertigo Terazosin changed to tamsulosin Antivert as needed PT evaluated Asthma: Continue home inhalers No signs of exacerbation Hyperlipidemia: Continue statin. GERD Continue PPI H/O BPH Terazosin>>changed to Tamsulosin DVT Px: SCDs Code Status Full Code Total Time Total Time Spent Total Time Spent (In Minutes): 45 minutes Discharge Plan Discharge Items [facility] Reason For Visit: CARDIAC ASSESSMENT Discharge Diagnosis: Chest Pain Sinus Bradycardia Vertigo Activity: Per Instructions section Exercise/Sports: Gradually increase as tolerated Non-emergency contact: Primary Care Provider Call non-emergency contact if: you have any medication questions, your symptoms worsen, your pain is concerning for you and you have a fever Follow-up/Referrals: Jerrod BRYAN [Primary Care Provider] - Diet: Heart Healthy Addtl Attending Provider Instructions: [facility] with [facility] for further management. Your terazosin is changed to tamsulosin as terazosin likely contributing to dizziness. Seek immediate medical attention if your symptoms reoccur or worsen Please take all medications as instructed on discharge list below. Please call if you have any questions or problems. You can reach a [facility] hospitalist on duty at [facility] 24 hours a day by calling [phone] Pending Studies at Discharge: No Stand-Alone Forms: My [facility] Skilled Items Patient informed of condition?: Yes Discharge Level of Care: Other Communicable Disease: No Discharge Prognosis: Stable Lines: None Urinary Catheter: No Medications and DC Order Prescriptions: New tamsulosin 0.4 mg Capsule 0.4 mg PO HS Qty: 0 0RF meclizine 12.5 mg Tablet 12.5 mg PO BID PRNQty: 0 0RF Continued atorvastatin 20 mg Tablet 20 mg PO HS albuterol sulfate 90 mcg/actuation Hfa Aerosol Inhaler 2 puff INHALATION QID PRN (Reason: Shortness Of Breath) omeprazole 20 mg Tablet,Delayed Release (Dr/Ec) 20 mg PO DAILY Alvesco 160 mcg/actuation Hfa Aerosol Inhaler 1 puff INHALATION BID Discontinued terazosin 10 mg Capsule 10 mg PO HS Discharge Orders: Discharge Order (Routine); Ordered 06/12/22 Ordered By: Ney Toney Admission Data Admit Date/Time: 06/12/22 01:18 Attending Provider: Ney Toney Admit Provider: Bossman Cole [facility] Care [facility] Other Providers: Bossman Cole ; Eric Soni ; Memo Ohara ; Donald Iqbal ; Hany Mathews ; Butch Martínez ; Abelino Delgado ; Awa Slater ; Maddison Cagle ; Zoey Boyle ; Vishnu Juarez
[2022-06-12] MEDS ORDERED: TAMSULOSIN HCL 0.4 MG CAP PO SCH (21:00)
[2022-06-12] MEDS ORDERED: ATORVASTATIN 20 MG TAB PO SCH (21:00)
[2022-06-12] MEDS ORDERED: TERAZOSIN HCL 5 MG CAP PO SCH (21:00)
== END 2022-06-12 19:00 | DRG 310 ==
LOC: ED 22:20 → SUATTDRO 06-12 01:18 → INTOOBSV 06-12 01:18 → 2S 06-12 01:18